=== PATIENT | male | born 1960 | race Caucasian/White ===

== ENCOUNTER → 2024-10-20 | Outpatient (REF) | payer MEDICARE, OTHER ==
[~2024-10-20] MED LIST: CIPR500T39 PO; NITR100C3 PO
[2024-10-20 09:00] LABS: BASO % 0.2 % (0.0-1.0); EOS # 0.1 10^3/uL (0.0-0.5); EOS % 2.1 % (0.0-3.0); HEMATOCRIT 29.6 % (42.0-52.0); HEMOGLOBIN 9.2 g/dl (13.5-17.5); LYMPH # 0.8 10^3/uL (1.5-5.0); MEAN CORPUSCULAR HEMOGLOBIN 28.4 pg (27.0-33.0); MEAN CORPUSCULAR HGB CONC 31.1 g/dl (32.0-36.5); MEAN CORPUSCULAR VOLUME 91.4 fl (80.0-96.0); MONO # 0.6 10^3/uL (0.0-0.8); MONO % 12.1 % (2.0-8.0); NEUTROPHILS # 3.5 10^3/uL (1.5-8.5); NEUTROPHILS % 68.8 % (36.0-66.0); PLATELET COUNT, AUTOMATED 176 10^3/uL (150-450); RED BLOOD COUNT 3.24 10^6/uL (4.30-6.10); WHITE BLOOD COUNT 5.1 10^3/uL (4.0-10.0)
[2024-10-20 09:46] LABS: ALBUMIN 3.2 G/DL (3.2-5.2); BILIRUBIN,TOTAL 0.8 MG/DL (0.3-1.2); CALCIUM LEVEL 8.1 MG/DL (8.3-10.6); CREATININE FOR GFR 1.28 MG/DL (0.70-1.30); GLOMERULAR FILTRATION RATE 63.3 (>49); MAGNESIUM LEVEL 1.4 MG/DL (1.8-2.4); PERCENT SATURATION 11.2 % (19.7-50.0); POTASSIUM SERUM 3.6 MMOL/L (3.5-5.1); TOTAL PROTEIN 6.8 G/DL (5.7-8.2)
[2024-10-20 09:47] LABS: THYROID STIMULATING HORMONE 6.279 uIU/ML (0.55-4.78); THYROXINE (T4) 8.9 UG/DL (4.5-10.9)
== END ==
PROVIDERS: ATTEND Nurse Practitioner Family
DX: D64.9 Anemia, unspecified (principal); I50.42 Chronic combined systolic (congestive) and diastolic (congestive) heart failure; R79.89 Other specified abnormal findings of blood chemistry

== ENCOUNTER → 2024-10-22 | Outpatient (REF) | payer MEDICARE, OTHER ==
[2024-10-22 15:03] LABS: APPEARANCE, URINE CLOUDY (CLEAR); BACTERIA, URINE AUTO 1+ (NEGATIVE); BILIRUBIN, URINE AUTO NEGATIVE (NEGATIVE); BLOOD, URINE BLOOD 3+ (NEGATIVE); COLOR, URINE RED (YELLOW); GLUCOSE, URINE (UA) AUTO 2+ mg/dL (NEGATIVE); KETONE, URINE AUTO NEGATIVE (NEGATIVE); LEUKOCYTE ESTERASE, URINE AUTO 3+ (NEGATIVE); NITRITE, URINE AUTO NEGATIVE (NEGATIVE); PROTEIN, URINE AUTO 2+ mg/dL (NEGATIVE); RBC, URINE AUTO TNTC /HPF (0-3); SPECIFIC GRAVITY URINE AUTO 1.012 (1.002-1.035); SQUAMOUS EPITHELIAL CELL UR AU 1 /HPF (0-6); UROBILINOGEN, URINE AUTO 0.2 mg/dL (0.0-2.0); WBC, URINE AUTO TNTC /HPF (0-3)
== END ==
LOC: EEVIPCON 12:57
PROVIDERS: ATTEND Nurse Practitioner Family
DX: R31.9 Hematuria, unspecified (principal)

== ENCOUNTER → 2024-12-01 | Outpatient (REF) | payer MEDICARE, MEDICAID ==
[~2024-12-01] MED LIST changes: +AMLO1TAB24 PO; +ATOR40TA75 PO; +BACTDSTA PO; +CLOP75TA2 PO; +DOXY-441 PO; +ELIQ5TAB PO; +ENTR1TAB PO; +FURO40TA2 PO; +LEXA1TAB PO; +METF-838 PO; +ONDA-83 PO; +PANT20TA6 PO; +TORS20TA2 PO
[2024-12-01 09:22] LABS: PLATELET COUNT, AUTOMATED 107 10^3/uL (150-450)
[2024-12-01 09:50] LABS: ALT/SGPT 13.0 U/L (7.0-40); AST/SGOT 17.0 U/L (<34); CALCIUM LEVEL 7.8 MG/DL (8.3-10.6); CARBON DIOXIDE LEVEL 21.0 MMOL/L (20-31); CHLORIDE LEVEL 104.0 MMOL/L (98-107); CHOLESTEROL LEVEL 77.0 MG/DL (<200); CHOLESTEROL RISK RATIO 3.31 (<5); CREATININE FOR GFR 1.41 MG/DL (0.70-1.30); GLOMERULAR FILTRATION RATE 56.3 (>49); LDL CHOLESTEROL 36.6 MG/DL (<100); NON-HDL-C 53.8 MG/DL; POTASSIUM SERUM 3.3 MMOL/L (3.5-5.1); SODIUM LEVEL 138.0 MMOL/L (136-145); TRIGLYCERIDES LEVEL 86.0 MG/DL (<150)
[2024-12-01 09:53] LABS: FREE T4 1.25 NG/DL (0.89-1.76)
[2024-12-01 10:01] LABS: ESTIMATED AVERAGE GLUCOSE 189.0 MG/DL (60-110)
[2024-12-01 10:10] LABS: EOSINOPHILS 3 % (0-3); LYMPHOCYTES 7 % (16-44); MONOCYTES 8 % (0-5); NEUTROPHILS 82 % (28-66)
[2024-12-01 10:15] LABS: PLATELET ESTIMATE NORMAL (NORMAL)
[2024-12-03 10:56] LABS: PSA % FREE 11.0 % (calc) (>25); PSA FREE 0.1 ng/mL; PSA TOTAL 0.9 ng/mL (< OR = 4.0)
== END ==
DX: Z00.8 Encounter for other general examination (principal); I10 Essential (primary) hypertension; E78.5 Hyperlipidemia, unspecified; E11.9 Type 2 diabetes mellitus without complications; Z12.5 Encounter for screening for malignant neoplasm of prostate

== ENCOUNTER → 2024-12-13 | Outpatient (REF) | payer MEDICARE, MEDICAID ==
[~2024-12-13] MED LIST changes: +ACET-907 PO; +ALDA25TA2 PO; +AZIT-12 PO; +CLAR10CA3 PO; +ECOT81TA5 PO; +ENTR1TAB7 PO; +FARX1TAB3 PO; +FERR325T3 PO; +HYDR25TA88 PO; +MED REC COMMENT; +METF500T13 PO; +NICO-260 MT; +PANT40TA29 PO; +TORS10TA3 PO; +TORS5TAB2 PO
[2024-12-13 11:08] LABS: BASO # 0.0 10^3/uL (0.0-0.2); BASO % 0.4 % (0.0-1.0); EOS # 0.1 10^3/uL (0.0-0.5); EOS % 1.6 % (0.0-3.0); LYMPH # 0.7 10^3/uL (1.5-5.0); LYMPH % 13.5 % (24.0-44.0); MONO # 0.4 10^3/uL (0.0-0.8); MONO % 8.6 % (2.0-8.0); NEUTROPHILS # 3.7 10^3/uL (1.5-8.5); NEUTROPHILS % 74.7 % (36.0-66.0); PLATELET COUNT, AUTOMATED 173 10^3/uL (150-450)
[2024-12-13 11:21] LABS: ESTIMATED AVERAGE GLUCOSE 200.0 MG/DL (60-110)
[2024-12-13 11:36] LABS: ALT/SGPT 10.0 U/L (7.0-40); AST/SGOT 18.0 U/L (<34); CALCIUM LEVEL 8.8 MG/DL (8.3-10.6); CARBON DIOXIDE LEVEL 20.0 MMOL/L (20-31); CHLORIDE LEVEL 110.0 MMOL/L (98-107); CHOLESTEROL LEVEL 84.0 MG/DL (<200); CHOLESTEROL RISK RATIO 2.57 (<5); CREATININE FOR GFR 1.14 MG/DL (0.70-1.30); GLOMERULAR FILTRATION RATE 72.7 (>49); LDL CHOLESTEROL 39.4 MG/DL (<100); NON-HDL-C 51.4 MG/DL; POTASSIUM SERUM 4.5 MMOL/L (3.5-5.1); SODIUM LEVEL 143.0 MMOL/L (136-145); TRIGLYCERIDES LEVEL 60.0 MG/DL (<150)
[2024-12-13 11:40] LABS: FREE T4 1.31 NG/DL (0.89-1.76)
[2024-12-15 13:05] LABS: PSA % FREE 14.0 % (calc) (>25); PSA FREE 0.2 ng/mL; PSA TOTAL 1.4 ng/mL (< OR = 4.0)
== END ==
DX: Z00.8 Encounter for other general examination (principal); I10 Essential (primary) hypertension; E78.5 Hyperlipidemia, unspecified; E11.9 Type 2 diabetes mellitus without complications; Z12.5 Encounter for screening for malignant neoplasm of prostate

== ENCOUNTER 2024-12-14 07:34 | Inpatient (IN) | payer MEDICARE, MEDICAID ==
[~2024-12-14] VITALS: Ht 177.8 cm; Wt 115.7 kg
[~2024-12-14 07:34] MED LIST changes: -ACET-907 PO; -ALDA25TA2 PO; -AMLO1TAB24 PO; -ATOR40TA75 PO; -AZIT-12 PO; -BACTDSTA PO; -CLAR10CA3 PO; -CLOP75TA2 PO; -DOXY-441 PO; -ECOT81TA5 PO; -ELIQ5TAB PO; -ENTR1TAB PO; -ENTR1TAB7 PO; -FARX1TAB3 PO; -FERR325T3 PO; -FURO40TA2 PO; -HYDR25TA88 PO; -LEXA1TAB PO; -MED REC COMMENT; -METF-838 PO; -METF500T13 PO; -NICO-260 MT; -ONDA-83 PO; -PANT20TA6 PO; -PANT40TA29 PO; -TORS10TA3 PO; -TORS20TA2 PO; -TORS5TAB2 PO
[2024-12-14] MEDS: IPRATROPIUM 0.5 MG/ALBUTEROL 2.5 MG INH SOL UD 3 ML NEB PRN (08:08)
[2024-12-14 09:25] LABS: BASO # 0.0 10^3/uL (0.0-0.2); BASO % 0.1 % (0.0-1.0); EOS # 0.0 10^3/uL (0.0-0.5); EOS % 0.4 % (0.0-3.0); LYMPH # 0.7 10^3/uL (1.5-5.0); LYMPH % 6.6 % (24.0-44.0); MONO # 0.7 10^3/uL (0.0-0.8); MONO % 6.7 % (2.0-8.0); NEUTROPHILS # 8.5 10^3/uL (1.5-8.5); NEUTROPHILS % 85.7 % (36.0-66.0); PLATELET COUNT, AUTOMATED 192 10^3/uL (150-450)
[2024-12-14 09:26] LABS: VENOUS BASE EXCESS -1.8 (-2.0-2.0); VENOUS HCO3 23.2 MMOL/L (23.0-27.0); VENOUS O2 SATURATION 79.5 % (60.0-80.0); VENOUS PARTIAL PRESSURE CO2 40.5 mmHg (38.0-50.0); VENOUS PARTIAL PRESSURE O2 48.0 mmHg (30.0-50.0); VENOUS PH 7.376 UNITS (7.330-7.430); VENOUS STANDARD HCO3 22.6 MMOL/L; VENOUS TOTAL CO2 24.4 MMOL/L (24.0-28.0)
[2024-12-14 09:57] LABS: ALT/SGPT 10.0 U/L (7.0-40); AST/SGOT 15.0 U/L (<34); CALCIUM LEVEL 8.9 MG/DL (8.3-10.6); CARBON DIOXIDE LEVEL 24.0 MMOL/L (20-31); CHLORIDE LEVEL 106.0 MMOL/L (98-107); CREATININE FOR GFR 1.22 MG/DL (0.70-1.30); GLOMERULAR FILTRATION RATE 67.0 (>49); POTASSIUM SERUM 3.9 MMOL/L (3.5-5.1); SODIUM LEVEL 143.0 MMOL/L (136-145)
[2024-12-14] MEDS ORDERED: ISOVUE-370 76% 100 ML VIAL As Ordered ONE (10:16)
[2024-12-14] MEDS ORDERED: FURO40TA2 PO (11:19)
[2024-12-14] MEDS ORDERED: BACTDSTA PO (11:19)
[2024-12-14] MEDS ORDERED: ATOR40TA75 PO (11:19)
[2024-12-14] MEDS ORDERED: CLOP75TA2 PO (11:19)
[2024-12-14] MEDS ORDERED: ENTR1TAB PO (11:20)
[2024-12-14] MEDS ORDERED: PANT20TA6 PO (11:20)
[2024-12-14] MEDS ORDERED: ELIQ5TAB PO (11:20)
[2024-12-14] MEDS ORDERED: METF-838 PO (11:22)
[2024-12-14] MEDS ORDERED: LEXA1TAB PO (11:22)
[2024-12-14] MEDS ORDERED: AMLO1TAB24 PO (11:24)
[2024-12-14] MEDS ORDERED: ONDA-83 PO (11:24)
[2024-12-14] MEDS ORDERED: DOXY-441 PO (11:24)
[2024-12-14] MEDS ORDERED: HOME MED LIST COMPLETE! XX SCH (11:25)
[2024-12-14] MEDS: LevoFLOXacin IV 750 MG in IV 1 EA IV ONE (11:27)
[2024-12-14] MEDS ORDERED: IPRATROPIUM 0.5 MG/ALBUTEROL 2.5 MG INH SOL UD 3 ML NEB PRN (15:05)
[2024-12-14 16:16] VITALS: BP 152/68; TEMP 98.5; O2SAT 95
[2024-12-14] MEDS ORDERED: GLUCOSE 4 GM CHEW PO PRN (17:30)
[2024-12-14] MEDS ORDERED: DEXTROSE 50% 50 ML SYRINGE IV PRN (17:30)
[2024-12-14] MEDS ORDERED: GLUCAGON INJ 1 MG VIAL SC PRN (17:30)
[2024-12-14] MEDS: HumuLIN R (REGULAR) INSULIN (NovoLIN R) **100 U/ML** PER UNIT IV STA ×2 (17:45→19:25)
[2024-12-14] MEDS ORDERED: PILL CUTTER 1 EACH XX PRN (17:45)
[2024-12-14] MEDS: FUROSEMIDE 20 MG/2 ML VIAL IV ONE (19:25)
[2024-12-14] MEDS: INSULIN LISPRO (NovoLOG) PER UNIT SC SCH ×2 (19:27→21:05)
[2024-12-14 19:46] VITALS: BP 131/61; TEMP 98.1; O2SAT 93
[2024-12-14] MEDS: NICOTINE 21 MG/24 HR 1 EA TRANSDERMAL TD ONE (21:05)
[2024-12-14] MEDS: ENOXAPARIN 100 MG/1 ML SYRINGE (J1650 PER 10MG) SC SCH (21:05)
[2024-12-14] MEDS: ENTRESTO 24-26 MG TABLET (SACUBITRIL/VALSARTAN) PO SCH (21:05)
[2024-12-15] VITALS (20 sets, daily range): BP systolic 128–152; BP diastolic 60–70; TEMP 97.1–98.4; O2SAT 92–96
[2024-12-15] MEDS ORDERED: INSULIN LISPRO (NovoLOG) PER UNIT SC SCH (07:30)
[2024-12-15] MEDS: ATORVASTATIN 20 MG TAB PO SCH (08:27)
[2024-12-15] MEDS: ESCITALOPRAM OXALATE 10 MG TABLET PO SCH (08:27)
[2024-12-15] MEDS: PANTOPRAZOLE 20 MG TAB PO SCH (08:28)
[2024-12-15] MEDS: FUROSEMIDE 40 MG/4 ML VIAL IV SCH (09:00)
[2024-12-15] MEDS ORDERED: FUROSEMIDE 40 MG TAB PO SCH (09:00)
[2024-12-15 09:18] LABS: CALCIUM LEVEL 8.7 MG/DL (8.3-10.6); CARBON DIOXIDE LEVEL 21.0 MMOL/L (20-31); CHLORIDE LEVEL 104.0 MMOL/L (98-107); CREATININE FOR GFR 1.48 MG/DL (0.70-1.30); GLOMERULAR FILTRATION RATE 53.2 (>49); MAGNESIUM LEVEL 1.5 MG/DL (1.8-2.4); POTASSIUM SERUM 4.3 MMOL/L (3.5-5.1); SODIUM LEVEL 138.0 MMOL/L (136-145)
[2024-12-15] MEDS: MAG SULF 1GM/100ML (MAG RUN) 1 GM in IV 1 EA IV SCH (14:49)
[2024-12-15] MEDS: ACETAMINOPHEN 325 MG TAB PO PRN (20:07)
[2024-12-16] VITALS (24 sets, daily range): BP systolic 131–176; BP diastolic 62–76; TEMP 96.8–97.5; O2SAT 86–99
[2024-12-16 05:36] LABS: CALCIUM LEVEL 8.8 MG/DL (8.3-10.6); CARBON DIOXIDE LEVEL 23.0 MMOL/L (20-31); CHLORIDE LEVEL 107.0 MMOL/L (98-107); CREATININE FOR GFR 1.6 MG/DL (0.70-1.30); GLOMERULAR FILTRATION RATE 48.4 (>49); MAGNESIUM LEVEL 2.2 MG/DL (1.8-2.4); POTASSIUM SERUM 4.2 MMOL/L (3.5-5.1); SODIUM LEVEL 142.0 MMOL/L (136-145)
[2024-12-16] MEDS: NICOTINE POLACRILEX 2 MG GUM PO PRN (15:01)
[2024-12-17] VITALS (16 sets, daily range): BP systolic 131–178; BP diastolic 58–80; TEMP 96.6–97.2; O2SAT 96–99
[2024-12-17 05:27] LABS: CALCIUM LEVEL 8.3 MG/DL (8.3-10.6); CARBON DIOXIDE LEVEL 24.0 MMOL/L (20-31); CHLORIDE LEVEL 107.0 MMOL/L (98-107); CREATININE FOR GFR 1.32 MG/DL (0.70-1.30); GLOMERULAR FILTRATION RATE 61.0 (>49); MAGNESIUM LEVEL 2.2 MG/DL (1.8-2.4); POTASSIUM SERUM 4.2 MMOL/L (3.5-5.1); SODIUM LEVEL 140.0 MMOL/L (136-145)
[2024-12-17 05:28] LABS: BASO # 0.0 10^3/uL (0.0-0.2); BASO % 0.4 % (0.0-1.0); EOS # 0.1 10^3/uL (0.0-0.5); EOS % 3.0 % (0.0-3.0); LYMPH # 0.7 10^3/uL (1.5-5.0); LYMPH % 14.9 % (24.0-44.0); MONO # 0.4 10^3/uL (0.0-0.8); MONO % 9.1 % (2.0-8.0); NEUTROPHILS # 3.3 10^3/uL (1.5-8.5); NEUTROPHILS % 72.2 % (36.0-66.0); PLATELET COUNT, AUTOMATED 179 10^3/uL (150-450)
[2024-12-17] MEDS: AZITHROMYCIN 250 MG TABLET PO SCH (08:15)
[2024-12-17] MEDS: APIXABAN 5 MG TAB PO SCH (20:09)
[2024-12-18 03:50] VITALS: BP 189/83; TEMP 97; O2SAT 97
[2024-12-18 05:42] LABS: BASO # 0.0 10^3/uL (0.0-0.2); BASO % 0.5 % (0.0-1.0); EOS # 0.1 10^3/uL (0.0-0.5); EOS % 2.5 % (0.0-3.0); LYMPH # 0.7 10^3/uL (1.5-5.0); LYMPH % 15.3 % (24.0-44.0); MONO # 0.4 10^3/uL (0.0-0.8); MONO % 9.9 % (2.0-8.0); NEUTROPHILS # 3.2 10^3/uL (1.5-8.5); NEUTROPHILS % 71.1 % (36.0-66.0); PLATELET COUNT, AUTOMATED 189 10^3/uL (150-450)
[2024-12-18 06:12] LABS: CALCIUM LEVEL 8.8 MG/DL (8.3-10.6); CARBON DIOXIDE LEVEL 22.0 MMOL/L (20-31); CHLORIDE LEVEL 109.0 MMOL/L (98-107); CREATININE FOR GFR 1.01 MG/DL (0.70-1.30); GLOMERULAR FILTRATION RATE 84.1 (>49); MAGNESIUM LEVEL 2.0 MG/DL (1.8-2.4); POTASSIUM SERUM 4.7 MMOL/L (3.5-5.1); SODIUM LEVEL 142.0 MMOL/L (136-145)
[2024-12-18 07:35] VITALS: BP 172/82; TEMP 97.1; O2SAT 95
[2024-12-18] MEDS: TORSEMIDE 20 MG TAB PO SCH (08:12)
[2024-12-18 11:48] VITALS: BP 149/69; TEMP 98; O2SAT 95
[2024-12-18 15:39] VITALS: BP 180/90; TEMP 97.2; O2SAT 96
[2024-12-18] MEDS: amLODIPine 5 MG TAB PO SCH (16:23)
[2024-12-18 19:37] VITALS: BP 180/78; TEMP 97.6; O2SAT 96
[2024-12-18 23:56] VITALS: BP 157/67; TEMP 98.1; O2SAT 96
[2024-12-19 03:54] VITALS: BP 163/70; TEMP 97.9; O2SAT 97
[2024-12-19 05:30] LABS: CALCIUM LEVEL 8.5 MG/DL (8.3-10.6); CARBON DIOXIDE LEVEL 22.0 MMOL/L (20-31); CHLORIDE LEVEL 106.0 MMOL/L (98-107); CREATININE FOR GFR 1.17 MG/DL (0.70-1.30); GLOMERULAR FILTRATION RATE 70.5 (>49); MAGNESIUM LEVEL 1.9 MG/DL (1.8-2.4); POTASSIUM SERUM 4.4 MMOL/L (3.5-5.1); SODIUM LEVEL 140.0 MMOL/L (136-145)
[2024-12-19 07:23] VITALS: BP 180/78; TEMP 97.5; O2SAT 96
[2024-12-19 11:23] VITALS: BP 150/84; TEMP 97.2; O2SAT 97
[2024-12-19 16:09] VITALS: BP 148/86; TEMP 97.5; O2SAT 96
[2024-12-19 20:40] VITALS: BP 145/65; TEMP 97.1; O2SAT 93
[2024-12-19 23:43] VITALS: BP 148/67; TEMP 97.3; O2SAT 98
[2024-12-20 03:26] VITALS: BP 153/70; TEMP 97.1; O2SAT 97
[2024-12-20 06:26] LABS: CALCIUM LEVEL 8.1 MG/DL (8.3-10.6); CARBON DIOXIDE LEVEL 24.0 MMOL/L (20-31); CHLORIDE LEVEL 106.0 MMOL/L (98-107); CREATININE FOR GFR 1.13 MG/DL (0.70-1.30); GLOMERULAR FILTRATION RATE 73.5 (>49); MAGNESIUM LEVEL 1.8 MG/DL (1.8-2.4); POTASSIUM SERUM 4.4 MMOL/L (3.5-5.1); SODIUM LEVEL 141.0 MMOL/L (136-145)
[2024-12-20 07:49] VITALS: BP 140/68; TEMP 97.2; O2SAT 97
[2024-12-20 08:06] VITALS: BP 140/68
[2024-12-20] MEDS ORDERED: TORS20TA2 PO (11:31)
[2025-12-14] MEDS ORDERED: INSULIN LISPRO (NovoLOG) PER UNIT SC SCH (17:30)
== END 2024-12-20 13:33 | DRG 177 ==
LOC: M ED 07:34 → M ED INP 12:55 → M PCU 16:08
PROVIDERS: ADMIT Student in an Organized Health Care Education/Training Program; ATTEND Family Medicine
DX: J98.59 Other diseases of mediastinum, not elsewhere classified (principal); I50.23 Acute on chronic systolic (congestive) heart failure; J98.11 Atelectasis; N17.9 Acute kidney failure, unspecified; R59.0 Localized enlarged lymph nodes; I48.91 Unspecified atrial fibrillation; Z79.01 Long term (current) use of anticoagulants; E11.65 Type 2 diabetes mellitus with hyperglycemia; I25.10 Atherosclerotic heart disease of native coronary artery without angina pectoris; R06.89 Other abnormalities of breathing; Z79.02 Long term (current) use of antithrombotics/antiplatelets; I11.0 Hypertensive heart disease with heart failure; E83.42 Hypomagnesemia; R00.1 Bradycardia, unspecified; I44.0 Atrioventricular block, first degree; I34.0 Nonrheumatic mitral (valve) insufficiency; E11.22 Type 2 diabetes mellitus with diabetic chronic kidney disease; I25.2 Old myocardial infarction; D64.9 Anemia, unspecified; Z95.2 Presence of prosthetic heart valve; Z87.891 Personal history of nicotine dependence; R91.8 Other nonspecific abnormal finding of lung field; Z79.899 Other long term (current) drug therapy; Z88.8 Allergy status to other drugs, medicaments and biological substances; Z86.73 Personal history of transient ischemic attack (TIA), and cerebral infarction without residual deficits

== ENCOUNTER → 2024-12-21 | Outpatient (REF) | payer MEDICARE, MEDICAID ==
[~2024-12-21] MED LIST changes: +AMLO1TAB24 PO; +ATOR40TA75 PO; +BACTDSTA PO; +CLOP75TA2 PO; +DOXY-441 PO; +ELIQ5TAB PO; +ENTR1TAB PO; +FURO40TA2 PO; +LEXA1TAB PO; +METF-838 PO; +ONDA-83 PO; +PANT20TA6 PO; +TORS20TA2 PO
[2024-12-22 14:16] LABS: APPEARANCE, URINE CLOUDY (CLEAR); BACTERIA, URINE AUTO 3+ (NEGATIVE); BILIRUBIN, URINE AUTO NEGATIVE (NEGATIVE); BLOOD, URINE BLOOD 3+ (NEGATIVE); GLUCOSE, URINE (UA) AUTO 3+ mg/dL (NEGATIVE); KETONE, URINE AUTO NEGATIVE (NEGATIVE); LEUKOCYTE ESTERASE, URINE AUTO 3+ (NEGATIVE); NITRITE, URINE AUTO NEGATIVE (NEGATIVE); PROTEIN, URINE AUTO 1+ mg/dL (NEGATIVE); RBC, URINE AUTO TNTC /HPF (0-3); SPECIFIC GRAVITY URINE AUTO 1.009 (1.002-1.035); SQUAMOUS EPITHELIAL CELL UR AU 0 /HPF (0-6); UROBILINOGEN, URINE AUTO 0.2 mg/dL (0.0-2.0); WBC, URINE AUTO TNTC /HPF (0-3)
== END ==
LOC: M SMT 13:07
PROVIDERS: ATTEND Nurse Practitioner Family
DX: Z01.818 Encounter for other preprocedural examination (principal)

== ENCOUNTER → 2025-01-06 | Outpatient (REF) | payer MEDICARE, MEDICAID | LOC: M LAB REF 12:57 | PROVIDERS: ATTEND Physician Assistant | DX: R00.1 Bradycardia, unspecified (principal) ==

== ENCOUNTER → 2025-01-07 | Outpatient (REF) | payer MEDICARE, MEDICAID ==
[2025-01-07 12:10] LABS: PLATELET COUNT, AUTOMATED 148 10^3/uL (150-450)
[2025-01-07 12:32] LABS: CALCIUM LEVEL 8.8 MG/DL (8.3-10.6); CARBON DIOXIDE LEVEL 23.0 MMOL/L (20-31); CHLORIDE LEVEL 106.0 MMOL/L (98-107); CREATININE FOR GFR 1.0 MG/DL (0.70-1.30); GLOMERULAR FILTRATION RATE 85.1 (>49); POTASSIUM SERUM 4.4 MMOL/L (3.5-5.1); SODIUM LEVEL 141.0 MMOL/L (136-145)
[2025-01-07 14:06] LABS: APPEARANCE, URINE HAZY (CLEAR); BACTERIA, URINE AUTO NEGATIVE (NEGATIVE); BILIRUBIN, URINE AUTO NEGATIVE (NEGATIVE); BLOOD, URINE BLOOD 3+ (NEGATIVE); GLUCOSE, URINE (UA) AUTO 3+ mg/dL (NEGATIVE); KETONE, URINE AUTO NEGATIVE (NEGATIVE); LEUKOCYTE ESTERASE, URINE AUTO 3+ (NEGATIVE); NITRITE, URINE AUTO NEGATIVE (NEGATIVE); PROTEIN, URINE AUTO 2+ mg/dL (NEGATIVE); RBC, URINE AUTO TNTC /HPF (0-3); SPECIFIC GRAVITY URINE AUTO 1.017 (1.002-1.035); SQUAMOUS EPITHELIAL CELL UR AU 0 /HPF (0-6); UROBILINOGEN, URINE AUTO 0.2 mg/dL (0.0-2.0); WBC, URINE AUTO 146 /HPF (0-3)
== END ==
PROVIDERS: ATTEND Nurse Practitioner Family
DX: Z01.818 Encounter for other preprocedural examination (principal); Z79.899 Other long term (current) drug therapy

== ENCOUNTER 2025-01-17 14:53 | Inpatient (IN) | payer MEDICARE, MEDICAID ==
[~2025-01-17] VITALS: Ht 177.8 cm; Wt 121.4 kg
[~2025-01-17 14:53] MED LIST changes: +ACET-907 PO; +AZIT-12 PO; +CLAR10CA3 PO; +ECOT81TA5 PO; +FERR325T3 PO; +HYDR25TA88 PO; +NICO-260 MT; +PANT40TA29 PO
[2025-01-17] MEDS ORDERED: LIDOCAINE 2% 100 MG/5 ML SDV (FOR ANES.) As Ordered ONE (15:14)
[2025-01-17] MEDS ORDERED: MIDAZOLAM INJ 2 MG/2 ML VIAL As Ordered ONE (15:15)
[2025-01-17] MEDS ORDERED: LIDOCAINE 1% SDV 30 ML VIAL As Ordered ONE (15:48)
[2025-01-17] MEDS: LR 1,000 ML IV SCH ×2 (15:50→18:35)
[2025-01-17] MEDS ORDERED: GLUCAGON INJ 1 MG VIAL SC PRN ×3 (16:05→19:20)
[2025-01-17] MEDS ORDERED: DEXTROSE 50% 50 ML SYRINGE IV PRN ×3 (16:05→19:20)
[2025-01-17] MEDS ORDERED: GLUCOSE 4 GM CHEW PO PRN ×3 (16:05→19:20)
[2025-01-17] MEDS ORDERED: INSULIN LISPRO (NovoLOG) PER UNIT As Ordered ONE (16:08)
[2025-01-17] MEDS: INSULIN LISPRO (NovoLOG) PER UNIT SC PRN ×2 (16:12→19:20)
[2025-01-17] MEDS ORDERED: ALBUTEROL SULFATE 2.5 MG/0.5 ML INH CONCENTRATE NEB SOLN As Ordered ONE (16:16)
[2025-01-17] MEDS: ALBUTEROL SULFATE 2.5 MG/0.5 ML INH CONCENTRATE NEB SOLN NEB ONE (16:21)
[2025-01-17] MEDS: VANCOMYCIN HCL 1,000 MG, VIAL MATE ADAPTER 1 EACH in NS 250 ML IV ONE (16:30)
[2025-01-17] MEDS ORDERED: VANCOMYCIN 1000MG/20ML VIAL As Ordered ONE (16:32)
[2025-01-17] MEDS ORDERED: KETOROLAC 30 MG/ML 1 ML VIAL As Ordered ONE (18:14)
[2025-01-17] MEDS: FUROSEMIDE 40 MG/4 ML VIAL IV ONE (19:10)
[2025-01-17] MEDS: ALBUTEROL SULFATE 2.5 MG/0.5 ML INH CONCENTRATE NEB SOLN INH SCH (20:00)
[2025-01-17 20:15] VITALS: BP 144/76; TEMP 96.7; O2SAT 95
[2025-01-17 21:00] VITALS: BP 157/77; TEMP 96.8; O2SAT 96
[2025-01-17] MEDS: INSULIN LISPRO (NovoLOG) PER UNIT SC SCH (21:00)
[2025-01-17 21:35] VITALS: BP 142/68; O2SAT 65; O2SAT 95
[2025-01-17] MEDS: PANTOPRAZOLE 40MG TAB PO SCH (21:45)
[2025-01-17] MEDS: ENTRESTO 24-26 MG TABLET (SACUBITRIL/VALSARTAN) PO SCH (21:45)
[2025-01-17 21:50] VITALS: TEMP 96.1
[2025-01-17 22:35] VITALS: BP 155/74; TEMP 95.7; O2SAT 97
[2025-01-17] MEDS ORDERED: METF500T13 PO (23:26)
[2025-01-17] MEDS ORDERED: MED REC COMMENT (23:32)
[2025-01-17] MEDS ORDERED: HOME MED LIST COMPLETE! XX SCH (23:35)
[2025-01-17 23:40] VITALS: BP 153/74; TEMP 96; O2SAT 98
[2025-01-18] VITALS (14 sets, daily range): BP systolic 110–162; BP diastolic 60–76; TEMP 96.3–100.4; O2SAT 88–100
[2025-01-18 06:41] LABS: PLATELET COUNT, AUTOMATED 116 10^3/uL (150-450)
[2025-01-18] MEDS: FUROSEMIDE 40 MG/4 ML VIAL IV ONE ×2 (06:51→12:49)
[2025-01-18 07:05] LABS: CALCIUM LEVEL 8.3 MG/DL (8.3-10.6); CARBON DIOXIDE LEVEL 24.0 MMOL/L (20-31); CHLORIDE LEVEL 110.0 MMOL/L (98-107); CREATININE FOR GFR 1.06 MG/DL (0.70-1.30); GLOMERULAR FILTRATION RATE 79.4 (>49); MAGNESIUM LEVEL 1.8 MG/DL (1.8-2.4); PHOSPHORUS LEVEL 4.1 MG/DL (2.4-5.1); POTASSIUM SERUM 4.2 MMOL/L (3.5-5.1); SODIUM LEVEL 142.0 MMOL/L (136-145)
[2025-01-18] MEDS: INSULIN LISPRO (NovoLOG) PER UNIT SC SCH (08:41)
[2025-01-18] MEDS: ESCITALOPRAM OXALATE 10 MG TABLET PO SCH (08:41)
[2025-01-18] MEDS: metFORMIN 500 MG TAB PO SCH (08:42)
[2025-01-18] MEDS: DAPAGLIFLOZIN PROPANEDIOL 10 MG TABLET PO SCH (12:49)
[2025-01-18] MEDS: ATORVASTATIN 10 MG TAB PO SCH (20:45)
[2025-01-18] MEDS: IRON SUCROSE 500 MG in NS 250 ML OVER 4 HRS IV ONE (21:10)
[2025-01-18] MEDS: ACETAMINOPHEN 325 MG TAB PO PRN (22:04)
[2025-01-19 00:05] VITALS: BP 142/62; TEMP 100.3; O2SAT 94
[2025-01-19] MEDS: FUROSEMIDE 40 MG/4 ML VIAL IV ONE ×2 (00:47→08:52)
[2025-01-19 04:22] VITALS: BP 138/68; TEMP 98.3; O2SAT 93
[2025-01-19 06:35] LABS: PLATELET COUNT, AUTOMATED 124 10^3/uL (150-450)
[2025-01-19 07:14] LABS: CALCIUM LEVEL 8.5 MG/DL (8.3-10.6); CARBON DIOXIDE LEVEL 26.0 MMOL/L (20-31); CHLORIDE LEVEL 106.0 MMOL/L (98-107); CREATININE FOR GFR 1.31 MG/DL (0.70-1.30); GLOMERULAR FILTRATION RATE 61.5 (>49); PHOSPHORUS LEVEL 4.5 MG/DL (2.4-5.1); POTASSIUM SERUM 3.6 MMOL/L (3.5-5.1); SODIUM LEVEL 143.0 MMOL/L (136-145)
[2025-01-19] MEDS: TORSEMIDE 10 MG TABLET PO SCH (08:57)
[2025-01-19] MEDS: ENTRESTO 49-51 MG TABLET (SACUBITRIL/VALSARTAN) PO SCH (08:57)
[2025-01-19] MEDS: traMADol 50 MG TAB PO PRN (09:21)
[2025-01-19 10:57] VITALS: BP 121/56; TEMP 97.2; O2SAT 94
[2025-01-19 19:54] VITALS: BP 144/65; TEMP 97.4; O2SAT 100
[2025-01-19 20:08] VITALS: BP 131/60; TEMP 97.4; O2SAT 96
[2025-01-20 04:17] VITALS: BP 130/65; TEMP 97.6; O2SAT 93
[2025-01-20 12:00] VITALS: BP 127/61; TEMP 98.4; O2SAT 93
[2025-01-20 14:57] LABS: CALCIUM LEVEL 8.4 MG/DL (8.3-10.6); CARBON DIOXIDE LEVEL 28.0 MMOL/L (20-31); CHLORIDE LEVEL 105.0 MMOL/L (98-107); CREATININE FOR GFR 1.34 MG/DL (0.70-1.30); GLOMERULAR FILTRATION RATE 59.9 (>49); PHOSPHORUS LEVEL 4.0 MG/DL (2.4-5.1); POTASSIUM SERUM 3.5 MMOL/L (3.5-5.1); SODIUM LEVEL 143.0 MMOL/L (136-145)
[2025-01-20 20:00] VITALS: BP 135/60; TEMP 97.8; O2SAT 97
[2025-01-20] MEDS: APIXABAN 5 MG TAB PO SCH (20:30)
[2025-01-21] MEDS: RAMELTEON 8 MG TAB PO PRN (01:04)
[2025-01-21 04:00] VITALS: BP 143/64; TEMP 98.1; O2SAT 97
[2025-01-21 10:00] VITALS: BP 110/56; TEMP 97.8; O2SAT 93
[2025-01-21 11:33] LABS: CALCIUM LEVEL 8.4 MG/DL (8.3-10.6); CARBON DIOXIDE LEVEL 26.0 MMOL/L (20-31); CHLORIDE LEVEL 101.0 MMOL/L (98-107); CREATININE FOR GFR 1.4 MG/DL (0.70-1.30); GLOMERULAR FILTRATION RATE 56.8 (>49); PHOSPHORUS LEVEL 3.3 MG/DL (2.4-5.1); POTASSIUM SERUM 3.5 MMOL/L (3.5-5.1); SODIUM LEVEL 137.0 MMOL/L (136-145)
[2025-01-21] MEDS ORDERED: TORS5TAB2 PO (16:39)
[2025-01-21] MEDS ORDERED: FARX1TAB3 PO (16:39)
[2025-01-21] MEDS ORDERED: ENTR1TAB7 PO (16:39)
[2025-01-22 04:00] VITALS: BP 131/61; TEMP 98.2; O2SAT 98
[2025-01-22] MEDS ORDERED: PILL CUTTER 1 EACH XX PRN (10:00)
[2025-01-22] MEDS: TORSEMIDE 10 MG TABLET PO SCH (10:41)
[2025-01-22 18:03] VITALS: BP 150/61; TEMP 97.9; O2SAT 97
[2025-01-23 06:34] VITALS: BP 142/57; TEMP 97.7; O2SAT 93
[2025-01-23] MEDS: metFORMIN 500 MG TAB PO SCH (18:00)
[2025-01-23 22:39] VITALS: BP 150/76; TEMP 97.5; O2SAT 92
[2025-01-24 05:27] VITALS: BP 151/76; TEMP 97.5; O2SAT 97
[2025-01-24 07:02] LABS: CALCIUM LEVEL 8.4 MG/DL (8.3-10.6); CARBON DIOXIDE LEVEL 28.0 MMOL/L (20-31); CHLORIDE LEVEL 105.0 MMOL/L (98-107); CREATININE FOR GFR 1.26 MG/DL (0.70-1.30); GLOMERULAR FILTRATION RATE 64.5 (>49); PHOSPHORUS LEVEL 3.7 MG/DL (2.4-5.1); POTASSIUM SERUM 3.7 MMOL/L (3.5-5.1); SODIUM LEVEL 143.0 MMOL/L (136-145)
[2025-01-24] MEDS: TORSEMIDE 10 MG TABLET PO SCH (08:54)
[2025-01-24] MEDS: SPIRONOLACTONE 12.5MG PER 1/2 TABLET PO SCH (08:56)
[2025-01-24] MEDS ORDERED: METF500T13 PO (11:23)
[2025-01-24] MEDS ORDERED: ALDA25TA2 PO (11:23)
[2025-01-24] MEDS ORDERED: TORS10TA3 PO (11:23)
[2025-01-24 12:45] VITALS: BP 150/73; TEMP 97.3; O2SAT 96
[2025-01-24 13:51] VITALS: BP 150/73; TEMP 97.3; O2SAT 96
[2025-01-25 06:14] VITALS: BP 132/55; TEMP 97.5; O2SAT 93
[2025-01-25 09:42] VITALS: BP 131/61
== END 2025-01-25 10:48 | disposition home or self-care (01) | DRG 242 ==
LOC: M SDC 14:53 → M RR INP 19:08 → M MS4PR 20:49 → M SDC 01-19 07:44 → M MS4PR 01-19 07:45 → M PM&R 01-19 13:08 → M MS4PR 01-19 13:12 → M MSPAV 01-22 18:00
PROVIDERS: ADMIT Internal Medicine Cardiovascular Disease; ATTEND Internal Medicine Cardiovascular Disease
PROC: 02H63JZ Insertion of Pacemaker Lead into Right Atrium, Percutaneous Approach (ICD-10-PCS; 2025-01-17)
PROC: 02HK3JZ Insertion of Pacemaker Lead into Right Ventricle, Percutaneous Approach (ICD-10-PCS; 2025-01-17)
PROC: 0JH606Z Insertion of Pacemaker, Dual Chamber into Chest Subcutaneous Tissue and Fascia, Open Approach (ICD-10-PCS; principal; 2025-01-17 16:30)
DX: I49.5 Sick sinus syndrome (principal); I50.23 Acute on chronic systolic (congestive) heart failure; R00.1 Bradycardia, unspecified; E11.40 Type 2 diabetes mellitus with diabetic neuropathy, unspecified; D50.9 Iron deficiency anemia, unspecified; E78.5 Hyperlipidemia, unspecified; I48.0 Paroxysmal atrial fibrillation; R55 Syncope and collapse; I25.10 Atherosclerotic heart disease of native coronary artery without angina pectoris; I11.0 Hypertensive heart disease with heart failure

== ENCOUNTER → 2025-01-29 | Outpatient (REF) | payer MEDICARE, MEDICAID ==
[~2025-01-29] MED LIST changes: +ALDA25TA2 PO; +ENTR1TAB7 PO; +FARX1TAB3 PO; +MED REC COMMENT; +METF500T13 PO; +TORS10TA3 PO; +TORS5TAB2 PO
[2025-01-29 14:56] LABS: APPEARANCE, URINE CLOUDY (CLEAR); BACTERIA, URINE AUTO 1+ (NEGATIVE); BILIRUBIN, URINE AUTO NEGATIVE (NEGATIVE); BLOOD, URINE BLOOD 2+ (NEGATIVE); GLUCOSE, URINE (UA) AUTO 3+ mg/dL (NEGATIVE); KETONE, URINE AUTO NEGATIVE (NEGATIVE); LEUKOCYTE ESTERASE, URINE AUTO 3+ (NEGATIVE); NITRITE, URINE AUTO NEGATIVE (NEGATIVE); PROTEIN, URINE AUTO 1+ mg/dL (NEGATIVE); RBC, URINE AUTO 67 /HPF (0-3); SPECIFIC GRAVITY URINE AUTO 1.018 (1.002-1.035); SQUAMOUS EPITHELIAL CELL UR AU 1 /HPF (0-6); UROBILINOGEN, URINE AUTO 0.2 mg/dL (0.0-2.0); WBC, URINE AUTO TNTC /HPF (0-3)
== END ==
LOC: M LAB 11:00
PROVIDERS: ATTEND Nurse Practitioner Family
DX: Z01.818 Encounter for other preprocedural examination (principal)

== ENCOUNTER → 2025-02-16 | Day surgery (SDC) | payer MEDICARE, MEDICAID ==
[~2025-02-16] VITALS: Ht 175.3 cm; Wt 100.2 kg
[~2025-02-16] MED LIST changes: +CIPROFLOXACIN 400 MG in IV 1 EA IV ONE; +DEXTROSE 50% 50 ML SYRINGE IV PRN; +ERTAPENEM SODIUM 1 GM in NS MINI-BAG PLUS 50 ML IV ONE; +GENTAMICIN 80 MG in D5W 100 ML IV ONE; +GLUCAGON INJ 1 MG VIAL SC PRN; +GLUCOSE 4 GM CHEW PO PRN; +LIDOCAINE 2% 100 MG/5 ML SDV (FOR ANES.) As Ordered ONE; +MAGN400T2 PO; +MIDAZOLAM INJ 2 MG/2 ML VIAL As Ordered ONE; +NICO2LOZ MT; +ONDANSETRON 4MG 2ML VIAL As Ordered ONE; +dexAMETHasone 4 MG/ML 1 ML VIAL As Ordered ONE
[2025-02-16 10:55] VITALS: BP 120/58; TEMP 98.1; O2SAT 98
[2025-02-16] MEDS: ISOVUE-300 61% 100 ML VIAL As Ordered ONE (11:15)
[2025-02-16] MEDS: INSULIN LISPRO (NovoLOG) PER UNIT SC PRN (11:20)
== END | disposition home or self-care (01) ==
LOC: M SDC 09:31
PROVIDERS: ATTEND Urology
DX: N20.1 Calculus of ureter (principal); Z53.09 Procedure and treatment not carried out because of other contraindication; Z79.899 Other long term (current) drug therapy

== ENCOUNTER 2025-02-20 00:17 | Inpatient (IN) | payer MEDICARE, MEDICAID ==
[~2025-02-20] VITALS: Ht 175.3 cm; Wt 135.5 kg
[~2025-02-20 00:17] MED LIST changes: -CIPROFLOXACIN 400 MG in IV 1 EA IV ONE; -DEXTROSE 50% 50 ML SYRINGE IV PRN; -ERTAPENEM SODIUM 1 GM in NS MINI-BAG PLUS 50 ML IV ONE; -GENTAMICIN 80 MG in D5W 100 ML IV ONE; -GLUCAGON INJ 1 MG VIAL SC PRN; -GLUCOSE 4 GM CHEW PO PRN; -LIDOCAINE 2% 100 MG/5 ML SDV (FOR ANES.) As Ordered ONE; -MIDAZOLAM INJ 2 MG/2 ML VIAL As Ordered ONE; -NICO2LOZ MT; +NICO2LOZ PO; -ONDANSETRON 4MG 2ML VIAL As Ordered ONE; -dexAMETHasone 4 MG/ML 1 ML VIAL As Ordered ONE
[2025-02-20 01:00] LABS: BASO # 0.0 10^3/uL (0.0-0.2); BASO % 0.2 % (0.0-1.0); EOS # 0.0 10^3/uL (0.0-0.5); EOS % 0.1 % (0.0-3.0); LYMPH # 0.4 10^3/uL (1.5-5.0); LYMPH % 3.4 % (24.0-44.0); MONO # 0.7 10^3/uL (0.0-0.8); MONO % 6.3 % (2.0-8.0); NEUTROPHILS # 9.6 10^3/uL (1.5-8.5); NEUTROPHILS % 89.3 % (36.0-66.0); PLATELET COUNT, AUTOMATED 137 10^3/uL (150-450)
[2025-02-20 01:24] LABS: ALT/SGPT 29.0 U/L (7.0-40); AST/SGOT 62.0 U/L (<34); CALCIUM LEVEL 8.1 MG/DL (8.3-10.6); CARBON DIOXIDE LEVEL 18.0 MMOL/L (20-31); CHLORIDE LEVEL 96.0 MMOL/L (98-107); CK-MB VALUE MASS 1.2 NG/ML (<3.6); CPK CREATINE PHOSPHOKINASE 160.0 U/L (46-171); CREATININE FOR GFR 1.89 MG/DL (0.70-1.30); GLOMERULAR FILTRATION RATE 39.6 (>49); MB/CK RELATIVE INDEX 0.75 (< OR =4); POTASSIUM SERUM 5.8 MMOL/L (3.5-5.1); SODIUM LEVEL 127.0 MMOL/L (136-145)
[2025-02-20] MEDS ORDERED: HumuLIN R (REGULAR) INSULIN (NovoLIN R) **100 U/ML** PER UNIT IV ONE (01:35)
[2025-02-20 01:46] LABS: ACETONE/KETONE 0.14 MMOL/L (0.02-0.27)
[2025-02-20 02:03] LABS: VENOUS BASE EXCESS -4.2 (-2.0-2.0); VENOUS HCO3 19.5 MMOL/L (23.0-27.0); VENOUS O2 SATURATION 97.3 % (60.0-80.0); VENOUS PARTIAL PRESSURE CO2 31.3 mmHg (38.0-50.0); VENOUS PARTIAL PRESSURE O2 91.9 mmHg (30.0-50.0); VENOUS PH 7.412 UNITS (7.330-7.430); VENOUS STANDARD HCO3 21.0 MMOL/L; VENOUS TOTAL CO2 20.4 MMOL/L (24.0-28.0)
[2025-02-20] MEDS: HumuLIN R (REGULAR) INSULIN (NovoLIN R) **100 U/ML** PER UNIT IV ONE ×2 (02:14→04:00)
[2025-02-20] MEDS: NS (Normal Saline) 0.9% 1,000 ML IV ONE ×2 (02:28→12:44)
[2025-02-20] MEDS: LevoFLOXacin IV 750 MG in IV 1 EA IV ONE (05:23)
[2025-02-20] MEDS: NS (Normal Saline) 0.9% 2,000 ML in IV 1 EA IV ONE (05:23)
[2025-02-20] MEDS ORDERED: ACETAMINOPHEN 325 MG TAB PO PRN (07:20)
[2025-02-20] MEDS ORDERED: LevoFLOXacin IV 750 MG in IV 1 EA IV SCH (07:20)
[2025-02-20] MEDS ORDERED: MORPHINE 2 MG/ML 1 ML VIAL IV PRN (07:20)
[2025-02-20] MEDS ORDERED: VANCOMYCIN HCL 1,000 MG, VIAL MATE ADAPTER 1 EACH in NS 250 ML IV SCH (07:20)
[2025-02-20] MEDS: NS (Normal Saline) 0.9% 1,000 ML IV SCH (07:20)
[2025-02-20] MEDS ORDERED: METF500T13 PO (07:31)
[2025-02-20] MEDS ORDERED: ENTR1TAB7 PO (07:31)
[2025-02-20] MEDS ORDERED: FARX1TAB3 PO (07:31)
[2025-02-20] MEDS ORDERED: TORS10TA3 PO (07:31)
[2025-02-20] MEDS ORDERED: CALC500T61 PO (07:31)
[2025-02-20] MEDS ORDERED: MAG-LIQ2 PO (07:31)
[2025-02-20] MEDS ORDERED: GUAIDM5UD PO (07:31)
[2025-02-20] MEDS ORDERED: HOME MED LIST COMPLETE! XX SCH (07:35)
[2025-02-20] MEDS: MORPHINE 4 MG/ML 1 ML VIAL IV ONE (07:37)
[2025-02-20 07:59] LABS: PLATELET COUNT, AUTOMATED 105 10^3/uL (150-450)
[2025-02-20 08:31] LABS: ALT/SGPT 35.0 U/L (7.0-40); AST/SGOT 51.0 U/L (<34); CALCIUM LEVEL 7.6 MG/DL (8.3-10.6); CARBON DIOXIDE LEVEL 17.0 MMOL/L (20-31); CHLORIDE LEVEL 103.0 MMOL/L (98-107); CREATININE FOR GFR 2.04 MG/DL (0.70-1.30); GLOMERULAR FILTRATION RATE 36.2 (>49); POTASSIUM SERUM 5.1 MMOL/L (3.5-5.1); SODIUM LEVEL 132.0 MMOL/L (136-145)
[2025-02-20] MEDS: PANTOPRAZOLE 40MG VIAL IV SCH (08:33)
[2025-02-20] MEDS: ERTAPENEM SODIUM 1 GM in NS MINI-BAG PLUS 50 ML IV SCH (08:34)
[2025-02-20] MEDS ORDERED: MIDAZOLAM INJ 2 MG/2 ML VIAL As Ordered ONE (09:57)
[2025-02-20] MEDS ORDERED: CALCIUM CHLORIDE 10% 1 GM/10 ML SYR As Ordered ONE (10:42)
[2025-02-20] MEDS ORDERED: ETOMIDATE 20 MG/10 ML VIAL As Ordered ONE (10:42)
[2025-02-20] MEDS ORDERED: ONDANSETRON 4MG/2ML VIAL As Ordered ONE (10:43)
[2025-02-20] MEDS ORDERED: dexAMETHasone 4 MG/ML 1 ML VIAL As Ordered ONE (10:43)
[2025-02-20] MEDS ORDERED: PHENYLephrine 500MCG 5ML (100MCG/ML) SYRINGE As Ordered ONE (10:54)
[2025-02-20] MEDS: ISOVUE-300 61% 100 ML VIAL As Ordered ONE (10:55)
[2025-02-20] MEDS: LINEZOLID 600 MG in IV 1 EA IV SCH (11:10)
[2025-02-20] MEDS: LR 1,000 ML IV SCH (11:25)
[2025-02-20] MEDS ORDERED: HYDROMORPHONE HCL 0.5 MG/0.5 ML SYRINGE IV PRN (11:25)
[2025-02-20] MEDS ORDERED: ONDANSETRON 4MG/2ML VIAL IV PRN (11:25)
[2025-02-20] MEDS: INSULIN LISPRO (NovoLOG) PER UNIT SC PRN (11:36)
[2025-02-20 12:58] VITALS: BP 117/58; TEMP 97.5; O2SAT 97
[2025-02-20] MEDS: INSULIN LISPRO (NovoLOG) PER UNIT SC SCH ×3 (13:07→21:35)
[2025-02-20 16:20] VITALS: BP 132/63; TEMP 97.4; O2SAT 96
[2025-02-20 20:08] VITALS: BP 124/60; TEMP 97.6; O2SAT 92
[2025-02-20] MEDS: LanTUS (INSULIN GLARGINE INJ) 1 UNITS/0.01 ML SC SCH (21:35)
[2025-02-21 00:09] VITALS: BP 150/73; TEMP 98.2; O2SAT 93
[2025-02-21 00:24] LABS: AMORPHOUS SEDIMENT SMALL (NEGATIVE); APPEARANCE, URINE CLOUDY (CLEAR); BACTERIA, URINE AUTO 1+ (NEGATIVE); BILIRUBIN, URINE AUTO NEGATIVE (NEGATIVE); BLOOD, URINE BLOOD 3+ (NEGATIVE); GLUCOSE, URINE (UA) AUTO 3+ mg/dL (NEGATIVE); KETONE, URINE AUTO NEGATIVE (NEGATIVE); LEUKOCYTE ESTERASE, URINE AUTO 2+ (NEGATIVE); NITRITE, URINE AUTO NEGATIVE (NEGATIVE); PROTEIN, URINE AUTO 2+ mg/dL (NEGATIVE); RBC, URINE AUTO TNTC /HPF (0-3); SPECIFIC GRAVITY URINE AUTO 1.018 (1.002-1.035); SQUAMOUS EPITHELIAL CELL UR AU 0 /HPF (0-6); UROBILINOGEN, URINE AUTO 0.2 mg/dL (0.0-2.0); WBC, URINE AUTO 151 /HPF (0-3)
[2025-02-21 03:22] VITALS: BP 149/75; TEMP 97.6; O2SAT 92
[2025-02-21 07:15] LABS: PLATELET COUNT, AUTOMATED 146 10^3/uL (150-450)
[2025-02-21 07:39] LABS: ALT/SGPT 35.0 U/L (7.0-40); AST/SGOT 36.0 U/L (<34); CALCIUM LEVEL 7.9 MG/DL (8.3-10.6); CARBON DIOXIDE LEVEL 16.0 MMOL/L (20-31); CHLORIDE LEVEL 107.0 MMOL/L (98-107); CREATININE FOR GFR 1.93 MG/DL (0.70-1.30); GLOMERULAR FILTRATION RATE 38.7 (>49); POTASSIUM SERUM 5.2 MMOL/L (3.5-5.1); SODIUM LEVEL 135.0 MMOL/L (136-145)
[2025-02-21 07:47] VITALS: BP 147/75; TEMP 97; O2SAT 93
[2025-02-21] MEDS: ATORVASTATIN 20 MG TAB PO SCH (08:51)
[2025-02-21] MEDS: APIXABAN 5 MG TAB PO SCH (08:52)
[2025-02-21] MEDS: MAGNESIUM OXIDE 400 MG TAB PO SCH (08:52)
[2025-02-21] MEDS: ESCITALOPRAM OXALATE 10 MG TABLET PO SCH (08:52)
[2025-02-21] MEDS: LanTUS (INSULIN GLARGINE INJ) 1 UNITS/0.01 ML SC SCH ×2 (08:56→21:44)
[2025-02-21 08:58] LABS: VENOUS BASE EXCESS -9.8 (-2.0-2.0); VENOUS HCO3 15.6 MMOL/L (23.0-27.0); VENOUS O2 SATURATION 99.6 % (60.0-80.0); VENOUS PARTIAL PRESSURE CO2 32.6 mmHg (38.0-50.0); VENOUS PARTIAL PRESSURE O2 208.9 mmHg (30.0-50.0); VENOUS PH 7.297 UNITS (7.330-7.430); VENOUS STANDARD HCO3 16.8 MMOL/L; VENOUS TOTAL CO2 16.6 MMOL/L (24.0-28.0)
[2025-02-21] MEDS ORDERED: LanTUS (INSULIN GLARGINE INJ) 1 UNITS/0.01 ML SC SCH (09:00)
[2025-02-21] MEDS: MORPHINE 4 MG/ML 1 ML VIAL IV PRN (11:39)
[2025-02-21 11:59] VITALS: BP 114/58; TEMP 97.2; O2SAT 93
[2025-02-21] MEDS: INSULIN LISPRO (NovoLOG) PER UNIT SC SCH ×2 (13:22→18:15)
[2025-02-21 15:39] VITALS: BP 98/50; TEMP 97; O2SAT 95
[2025-02-21] MEDS: LR 1,000 ML IV ONE (17:22)
[2025-02-21 17:29] LABS: ABG BASE EXCESS -9.8 (-2.0-2.0); ABG HCO3 15.6 MMOL/L (22.0-26.0); ABG O2 SATURATION 93.1 % (95.0-99.0); ABG PARTIAL PRESSURE CO2 32.9 mmHg (35.0-45.0); ABG PARTIAL PRESSURE O2 72.0 mmHg (75.0-100.0); ABG STANDARD HCO3 16.6 MMOL/L. (22.0-26.0); ABG TOTAL CO2 16.7 MMOL/L (23.0-31.0); ABG pH (ARTERIAL) 7.295 UNITS (7.350-7.450)
[2025-02-21 17:51] LABS: ESTIMATED AVERAGE GLUCOSE 263.0 MG/DL (60-110)
[2025-02-21 18:06] LABS: ALT/SGPT 38 U/L (7.0-40); AST/SGOT 46 U/L (<34); CALCIUM LEVEL 7.8 MG/DL (8.3-10.6); CARBON DIOXIDE LEVEL 16 MMOL/L (20-31); CHLORIDE LEVEL 107 MMOL/L (98-107); CK-MB VALUE MASS < 1.0 NG/ML (<3.6); CPK CREATINE PHOSPHOKINASE 41 U/L (46-171); CREATININE FOR GFR 1.94 MG/DL (0.70-1.30); GLOMERULAR FILTRATION RATE 38.4 (>49); POTASSIUM SERUM 4.9 MMOL/L (3.5-5.1); SODIUM LEVEL 137 MMOL/L (136-145)
[2025-02-21] MEDS: SODIUM BICARBONATE 150 MEQ in D5W 1,000 ML IV SCH (18:31)
[2025-02-21 19:28] VITALS: BP 96/56; TEMP 97.2; O2SAT 93
[2025-02-21] MEDS: SODIUM BICARBONATE 150 MEQ in STERILE WATER LITER BAG 1,000 ML IV SCH (23:49)
[2025-02-22 00:16] VITALS: BP 101/52; TEMP 97.3; O2SAT 92
[2025-02-22 03:48] VITALS: BP 98/59; TEMP 97.6; O2SAT 92
[2025-02-22 06:18] LABS: PLATELET COUNT, AUTOMATED 140 10^3/uL (150-450)
[2025-02-22 06:35] LABS: ALT/SGPT 51.0 U/L (7.0-40); AST/SGOT 57.0 U/L (<34); CALCIUM LEVEL 7.5 MG/DL (8.3-10.6); CARBON DIOXIDE LEVEL 19.0 MMOL/L (20-31); CHLORIDE LEVEL 106.0 MMOL/L (98-107); CREATININE FOR GFR 1.86 MG/DL (0.70-1.30); GLOMERULAR FILTRATION RATE 40.4 (>49); POTASSIUM SERUM 5.0 MMOL/L (3.5-5.1); SODIUM LEVEL 136.0 MMOL/L (136-145)
[2025-02-22 07:15] VITALS: BP 103/55; TEMP 97.2; O2SAT 92
[2025-02-22] MEDS: INSULIN LISPRO (NovoLOG) PER UNIT SC SCH (10:22)
[2025-02-22 12:16] VITALS: BP 113/55; TEMP 97.4; O2SAT 95
[2025-02-22 15:42] VITALS: BP 92/50; TEMP 97.4; O2SAT 90
[2025-02-22 20:00] VITALS: BP 108/62; TEMP 97.2; O2SAT 88
[2025-02-22] MEDS: MORPHINE 4 MG/ML 1 ML VIAL IV PRN (23:44)
[2025-02-23] VITALS (9 sets, daily range): BP systolic 108–144; BP diastolic 57–70; TEMP 97.2–98.6; O2SAT 85–94
[2025-02-23] MEDS ORDERED: NICOTINE 21 MG/24 HR 1 EA TRANSDERMAL TD PRN (00:50)
[2025-02-23 04:57] LABS: PLATELET COUNT, AUTOMATED 139 10^3/uL (150-450)
[2025-02-23 05:34] LABS: ALT/SGPT 50.0 U/L (7.0-40); AST/SGOT 47.0 U/L (<34); CALCIUM LEVEL 7.7 MG/DL (8.3-10.6); CARBON DIOXIDE LEVEL 26.0 MMOL/L (20-31); CHLORIDE LEVEL 101.0 MMOL/L (98-107); CREATININE FOR GFR 1.83 MG/DL (0.70-1.30); GLOMERULAR FILTRATION RATE 41.2 (>49); POTASSIUM SERUM 4.1 MMOL/L (3.5-5.1); SODIUM LEVEL 138.0 MMOL/L (136-145)
[2025-02-23] MEDS: NICOTINE 21 MG/24 HR 1 EA TRANSDERMAL TD ONE (13:22)
[2025-02-23] MEDS: NYSTATIN 100,000 UNITS/GM TOPICAL PWD 15 GM TOP SCH (22:04)
[2025-02-23] MEDS: LINEZOLID 600 MG TABLET PO SCH (22:04)
[2025-02-24] VITALS (7 sets, daily range): BP systolic 120–154; BP diastolic 56–75; TEMP 97–97.5; O2SAT 91–98
[2025-02-24 05:35] LABS: ALT/SGPT 35.0 U/L (7.0-40); AST/SGOT 24.0 U/L (<34); CALCIUM LEVEL 7.9 MG/DL (8.3-10.6); CARBON DIOXIDE LEVEL 25.0 MMOL/L (20-31); CHLORIDE LEVEL 105.0 MMOL/L (98-107); CREATININE FOR GFR 1.5 MG/DL (0.70-1.30); GLOMERULAR FILTRATION RATE 52.3 (>49); POTASSIUM SERUM 4.4 MMOL/L (3.5-5.1); SODIUM LEVEL 140.0 MMOL/L (136-145)
[2025-02-24] MEDS ORDERED: NICOTINE 21 MG/24 HR 1 EA TRANSDERMAL TD SCH (09:00)
[2025-02-24] MEDS: NICOTINE 21 MG/24 HR 1 EA TRANSDERMAL TD SCH (09:39)
[2025-02-24] MEDS: TORSEMIDE 10 MG TABLET PO ONE (12:28)
[2025-02-25 06:36] VITALS: BP 160/66; TEMP 97.5; O2SAT 92
[2025-02-25 06:54] LABS: ALT/SGPT 29.0 U/L (7.0-40); AST/SGOT 18.0 U/L (<34); CALCIUM LEVEL 8.2 MG/DL (8.3-10.6); CARBON DIOXIDE LEVEL 26.0 MMOL/L (20-31); CHLORIDE LEVEL 105.0 MMOL/L (98-107); CREATININE FOR GFR 1.3 MG/DL (0.70-1.30); GLOMERULAR FILTRATION RATE 62.1 (>49); POTASSIUM SERUM 4.7 MMOL/L (3.5-5.1); SODIUM LEVEL 140.0 MMOL/L (136-145)
[2025-02-25] MEDS ORDERED: TORSEMIDE 10 MG TABLET PO SCH (09:00)
[2025-02-25] MEDS: TORSEMIDE 20 MG TAB PO SCH (09:52)
[2025-02-25 11:54] VITALS: BP 146/75; TEMP 97.5; O2SAT 92
[2025-02-25 21:13] VITALS: BP 138/59; TEMP 97.5; O2SAT 96
[2025-02-26 06:34] VITALS: BP 153/71; TEMP 97.3; O2SAT 94
[2025-02-26 11:26] VITALS: BP 158/71; TEMP 97.3; O2SAT 93
[2025-02-26] MEDS: INSULIN LISPRO (NovoLOG) PER UNIT SC SCH (18:47)
[2025-02-26 21:41] VITALS: BP 152/73; TEMP 97.5; O2SAT 95
[2025-02-27] VITALS (8 sets, daily range): BP systolic 130–168; BP diastolic 50–96; TEMP 95.3–100.3; O2SAT 93–97
[2025-02-27 11:22] LABS: CALCIUM LEVEL 8.5 MG/DL (8.3-10.6); CARBON DIOXIDE LEVEL 30.0 MMOL/L (20-31); CHLORIDE LEVEL 104.0 MMOL/L (98-107); CREATININE FOR GFR 1.31 MG/DL (0.70-1.30); GLOMERULAR FILTRATION RATE 61.5 (>49); MAGNESIUM LEVEL 1.6 MG/DL (1.8-2.4); POTASSIUM SERUM 4.7 MMOL/L (3.5-5.1); SODIUM LEVEL 144.0 MMOL/L (136-145)
[2025-02-27] MEDS: amLODIPine 5 MG TAB PO ONE (12:00)
[2025-02-27] MEDS: INSULIN LISPRO (NovoLOG) PER UNIT SC SCH (13:03)
[2025-02-27] MEDS: MAGNESIUM OXIDE 400 MG TAB PO SCH (16:55)
[2025-02-27] MEDS: ACETAMINOPHEN *IV* 1,000 MG in IV 1 EA IV ONE (18:59)
[2025-02-28 04:09] VITALS: BP 142/58; TEMP 98.4; TEMP 99.6; O2SAT 95
[2025-02-28 06:46] LABS: CALCIUM LEVEL 8.0 MG/DL (8.3-10.6); CARBON DIOXIDE LEVEL 30.0 MMOL/L (20-31); CHLORIDE LEVEL 104.0 MMOL/L (98-107); CREATININE FOR GFR 1.3 MG/DL (0.70-1.30); GLOMERULAR FILTRATION RATE 62.1 (>49); MAGNESIUM LEVEL 1.6 MG/DL (1.8-2.4); POTASSIUM SERUM 4.3 MMOL/L (3.5-5.1); SODIUM LEVEL 142.0 MMOL/L (136-145)
[2025-02-28] MEDS: MAG SULF 1GM/100ML (MAG RUN) 1 GM in IV 1 EA IV SCH (08:32)
[2025-02-28] MEDS: amLODIPine 5 MG TAB PO SCH (08:36)
[2025-02-28 12:00] VITALS: BP 148/71; TEMP 97.3; O2SAT 97
[2025-02-28 16:25] LABS: C REACTIVE PROTEIN QUANTITATIV 1.71 MG/DL (<1.0)
[2025-02-28 17:27] LABS: KETONE, URINE AUTO RFX NEGATIVE (NEGATIVE); LEUKOCYTE ESTERASE UR AUTO RFX 3+ (NEGATIVE); NITRITE, URINE AUTO RFX NEGATIVE (NEGATIVE); RBC, URINE AUTO RFX TNTC /HPF (0-3); SQUAM EPITHELIAL CELL UR AURFX 0 /HPF (0-6); WBC, URINE AUTO RFX 101 /HPF (0-3)
[2025-02-28] MEDS: FOSFOMYCIN TROMETHAMINE 3 GM POWDER PACKET PO ONE (17:37)
[2025-02-28 20:25] VITALS: BP 137/60; TEMP 97.3; O2SAT 96
[2025-03-01 01:05] VITALS: TEMP 96.4
[2025-03-01 03:08] VITALS: BP 147/74; TEMP 97.2; O2SAT 93
[2025-03-01 06:30] LABS: BASO # 0.0 10^3/uL (0.0-0.2); BASO % 0.2 % (0.0-1.0); EOS # 0.1 10^3/uL (0.0-0.5); EOS % 2.7 % (0.0-3.0); LYMPH # 0.8 10^3/uL (1.5-5.0); LYMPH % 16.0 % (24.0-44.0); MONO # 0.5 10^3/uL (0.0-0.8); MONO % 9.0 % (2.0-8.0); NEUTROPHILS # 3.6 10^3/uL (1.5-8.5); NEUTROPHILS % 71.3 % (36.0-66.0); PLATELET COUNT, AUTOMATED 179 10^3/uL (150-450)
[2025-03-01 07:02] LABS: CALCIUM LEVEL 9.0 MG/DL (8.3-10.6); CARBON DIOXIDE LEVEL 29.0 MMOL/L (20-31); CHLORIDE LEVEL 104.0 MMOL/L (98-107); CREATININE FOR GFR 1.25 MG/DL (0.70-1.30); GLOMERULAR FILTRATION RATE 65.1 (>49); MAGNESIUM LEVEL 1.8 MG/DL (1.8-2.4); POTASSIUM SERUM 4.2 MMOL/L (3.5-5.1); SODIUM LEVEL 142.0 MMOL/L (136-145)
[2025-03-01 11:48] VITALS: BP 137/74; TEMP 97.5; O2SAT 93
[2025-03-01 20:01] VITALS: BP 156/68; TEMP 97.9; O2SAT 94
[2025-03-02 05:07] VITALS: BP 149/71; TEMP 97.2; O2SAT 95
[2025-03-02 06:43] LABS: CALCIUM LEVEL 8.3 MG/DL (8.3-10.6); CARBON DIOXIDE LEVEL 30.0 MMOL/L (20-31); CHLORIDE LEVEL 104.0 MMOL/L (98-107); CREATININE FOR GFR 1.15 MG/DL (0.70-1.30); GLOMERULAR FILTRATION RATE 72.0 (>49); MAGNESIUM LEVEL 1.8 MG/DL (1.8-2.4); POTASSIUM SERUM 4.1 MMOL/L (3.5-5.1); SODIUM LEVEL 143.0 MMOL/L (136-145)
[2025-03-02] MEDS ORDERED: PILL CUTTER 1 EACH XX PRN (11:30)
[2025-03-02] MEDS: ONDANSETRON 4MG/2ML VIAL IV PRN (11:41)
[2025-03-02 12:00] VITALS: BP 133/62; TEMP 97.5; O2SAT 91
[2025-03-02 20:42] VITALS: BP 127/60; TEMP 97.7; O2SAT 94
[2025-03-03 05:03] VITALS: BP 126/58; TEMP 98.1; O2SAT 92
[2025-03-03 07:20] LABS: CALCIUM LEVEL 8.3 MG/DL (8.3-10.6); CARBON DIOXIDE LEVEL 29.0 MMOL/L (20-31); CHLORIDE LEVEL 102.0 MMOL/L (98-107); CREATININE FOR GFR 1.38 MG/DL (0.70-1.30); GLOMERULAR FILTRATION RATE 57.8 (>49); MAGNESIUM LEVEL 1.8 MG/DL (1.8-2.4); POTASSIUM SERUM 4.4 MMOL/L (3.5-5.1); SODIUM LEVEL 139.0 MMOL/L (136-145)
[2025-03-03] MEDS: ENTRESTO 49-51 MG TABLET (SACUBITRIL/VALSARTAN) PO SCH (09:00)
[2025-03-03] MEDS: TORSEMIDE 10 MG TABLET PO SCH (09:50)
[2025-03-03] MEDS: PANTOPRAZOLE 40MG TAB PO SCH (09:52)
[2025-03-03 12:00] VITALS: BP 106/58; TEMP 97.5; O2SAT 96
[2025-03-03 20:20] VITALS: BP 107/56; TEMP 97.7; O2SAT 92
[2025-03-04 03:23] VITALS: BP 151/69; TEMP 97.5
[2025-03-04 06:51] LABS: CALCIUM LEVEL 8.6 MG/DL (8.3-10.6); CARBON DIOXIDE LEVEL 27.0 MMOL/L (20-31); CHLORIDE LEVEL 103.0 MMOL/L (98-107); CREATININE FOR GFR 1.23 MG/DL (0.70-1.30); GLOMERULAR FILTRATION RATE 66.4 (>49); MAGNESIUM LEVEL 1.8 MG/DL (1.8-2.4); POTASSIUM SERUM 4.5 MMOL/L (3.5-5.1); SODIUM LEVEL 141.0 MMOL/L (136-145)
[2025-03-04 11:45] VITALS: BP 136/64; TEMP 97.5; O2SAT 94
[2025-03-04 20:05] VITALS: BP 137/64; TEMP 97.5; O2SAT 94
[2025-03-05 05:24] VITALS: BP 153/86; TEMP 97.7; O2SAT 94
[2025-03-05 06:59] LABS: CALCIUM LEVEL 8.7 MG/DL (8.3-10.6); CARBON DIOXIDE LEVEL 27.0 MMOL/L (20-31); CHLORIDE LEVEL 104.0 MMOL/L (98-107); CREATININE FOR GFR 1.04 MG/DL (0.70-1.30); GLOMERULAR FILTRATION RATE 81.2 (>49); MAGNESIUM LEVEL 1.9 MG/DL (1.8-2.4); POTASSIUM SERUM 4.9 MMOL/L (3.5-5.1); SODIUM LEVEL 141.0 MMOL/L (136-145)
[2025-03-05 12:00] VITALS: BP 161/79; TEMP 97.5; O2SAT 98
[2025-03-05 21:08] VITALS: BP 162/78; TEMP 97.9; O2SAT 94
[2025-03-06 03:58] VITALS: BP 161/77; TEMP 97.9; O2SAT 95
[2025-03-06 07:32] LABS: CALCIUM LEVEL 8.4 MG/DL (8.3-10.6); CARBON DIOXIDE LEVEL 27.0 MMOL/L (20-31); CHLORIDE LEVEL 104.0 MMOL/L (98-107); CREATININE FOR GFR 1.0 MG/DL (0.70-1.30); GLOMERULAR FILTRATION RATE 85.1 (>49); MAGNESIUM LEVEL 1.9 MG/DL (1.8-2.4); POTASSIUM SERUM 4.4 MMOL/L (3.5-5.1); SODIUM LEVEL 140.0 MMOL/L (136-145)
[2025-03-06 12:00] VITALS: BP 129/99; TEMP 97.8; O2SAT 99
[2025-03-06 23:21] VITALS: BP 135/83; TEMP 97.7; O2SAT 98
[2025-03-07] VITALS (8 sets, daily range): BP systolic 126–138; BP diastolic 63–88; TEMP 97.7–97.9; O2SAT 84–99
[2025-03-07] MEDS ORDERED: ERTAPENEM SODIUM 1 GM in NS MINI-BAG PLUS 50 ML IV ONE (11:00)
[2025-03-07] MEDS ORDERED: KETOROLAC 30 MG/ML 1 ML VIAL As Ordered ONE (11:30)
[2025-03-07] MEDS ORDERED: LIDOCAINE 2% 100 MG/5 ML SDV (FOR ANES.) As Ordered ONE (11:31)
[2025-03-07] MEDS: ERTAPENEM SODIUM 1 GM in NS MINI-BAG PLUS 50 ML IV ONE (15:40)
[2025-03-07] MEDS ORDERED: ACETAMINOPHEN 1000MG/100ML IV BAG As Ordered ONE (16:02)
[2025-03-07] MEDS ORDERED: GLUCAGON INJ 1 MG VIAL SC PRN (16:30)
[2025-03-07] MEDS ORDERED: INSULIN LISPRO (NovoLOG) PER UNIT SC PRN (16:30)
[2025-03-07] MEDS ORDERED: GLUCOSE 4 GM CHEW PO PRN (16:30)
[2025-03-07] MEDS ORDERED: HYDROMORPHONE HCL 0.5 MG/0.5 ML SYRINGE IV PRN (16:30)
[2025-03-07] MEDS ORDERED: DEXTROSE 50% 50 ML SYRINGE IV PRN (16:30)
[2025-03-07] MEDS ORDERED: MORPHINE 4 MG/ML 1 ML VIAL IV PRN (16:30)
[2025-03-08 01:15] VITALS: BP 132/77; TEMP 97.9; O2SAT 90
[2025-03-08 05:34] VITALS: BP 133/77; TEMP 97.9; O2SAT 91
[2025-03-08 08:00] VITALS: BP 132/70; TEMP 98.2; O2SAT 95
[2025-03-08 12:00] VITALS: BP 130/67; TEMP 97.5; O2SAT 94
[2025-03-08 20:06] VITALS: BP 142/67; TEMP 98.3; O2SAT 95
[2025-03-09 04:00] VITALS: BP 144/65; TEMP 97.9; O2SAT 93
[2025-03-09 08:52] LABS: BASO # 0.0 10^3/uL (0.0-0.2); BASO % 0.4 % (0.0-1.0); EOS # 0.1 10^3/uL (0.0-0.5); EOS % 1.1 % (0.0-3.0); LYMPH # 1.0 10^3/uL (1.5-5.0); LYMPH % 17.4 % (24.0-44.0); MONO # 0.6 10^3/uL (0.0-0.8); MONO % 9.8 % (2.0-8.0); NEUTROPHILS # 4.0 10^3/uL (1.5-8.5); NEUTROPHILS % 70.9 % (36.0-66.0); PLATELET COUNT, AUTOMATED 157 10^3/uL (150-450)
[2025-03-09 09:16] LABS: CALCIUM LEVEL 8.4 MG/DL (8.3-10.6); CARBON DIOXIDE LEVEL 26.0 MMOL/L (20-31); CHLORIDE LEVEL 103.0 MMOL/L (98-107); CREATININE FOR GFR 1.24 MG/DL (0.70-1.30); GLOMERULAR FILTRATION RATE 65.7 (>49); POTASSIUM SERUM 5.4 MMOL/L (3.5-5.1); SODIUM LEVEL 137.0 MMOL/L (136-145)
[2025-03-09 11:47] VITALS: BP 152/72; TEMP 98.5; O2SAT 96
[2025-03-09] MEDS: FUROSEMIDE 40 MG/4 ML VIAL IV ONE (12:54)
[2025-03-09] MEDS: PATIROMER SORBITEX CALCIUM 8.4GM POWDER PACKET PO ONE (12:55)
[2025-03-09] MEDS: CALCIUM GLUCONATE 1,000 MG in DEXTROSE 5% (D5W) MINI-BAG PLU 100 ML IV ONE (12:55)
[2025-03-09 13:29] LABS: CALCIUM LEVEL 8.5 MG/DL (8.3-10.6); CARBON DIOXIDE LEVEL 28.0 MMOL/L (20-31); CHLORIDE LEVEL 101.0 MMOL/L (98-107); CREATININE FOR GFR 1.21 MG/DL (0.70-1.30); GLOMERULAR FILTRATION RATE 67.7 (>49); POTASSIUM SERUM 5.0 MMOL/L (3.5-5.1); SODIUM LEVEL 136.0 MMOL/L (136-145)
[2025-03-09] MEDS: ALBUTEROL SULFATE 2.5 MG/0.5 ML INH CONCENTRATE NEB SOLN NEB ONE (13:43)
[2025-03-09] MEDS: ACETAMINOPHEN 500 MG TAB PO PRN (18:42)
[2025-03-09 20:23] VITALS: BP 129/66; TEMP 98.6; O2SAT 94
[2025-03-10 06:10] VITALS: BP 145/67; TEMP 98.6; O2SAT 97
[2025-03-10 12:02] VITALS: BP 129/62; TEMP 98.6; O2SAT 98
[2025-03-10 20:59] VITALS: BP 131/60; TEMP 98.8; O2SAT 95
[2025-03-11 03:55] VITALS: BP 149/67; TEMP 98.6; O2SAT 95
[2025-03-11] MEDS ORDERED: AMLO1TAB24 PO (08:53)
[2025-03-11] MEDS ORDERED: NICO21PAT TD (08:53)
[2025-03-11 09:12] VITALS: BP 151/71
== END 2025-03-11 11:41 | DRG 659 ==
LOC: M ED 00:17 → M ED INP 07:17 → M PCU 12:29 → M MSPAV 02-24 22:09
PROVIDERS: ADMIT Internal Medicine; ATTEND Internal Medicine
PROC: 0TP98DZ Removal of Intraluminal Device from Ureter, Via Natural or Artificial Opening Endoscopic (ICD-10-PCS; 2025-02-20)
PROC: 0TP98DZ Removal of Intraluminal Device from Ureter, Via Natural or Artificial Opening Endoscopic (ICD-10-PCS; 2025-02-20)
PROC: 0T778DZ Dilation of Left Ureter with Intraluminal Device, Via Natural or Artificial Opening Endoscopic (ICD-10-PCS; principal; 2025-02-20 09:55)
PROC: 0T778DZ Dilation of Left Ureter with Intraluminal Device, Via Natural or Artificial Opening Endoscopic (ICD-10-PCS; 2025-03-07)
DX: T83.122A Displacement of indwelling ureteral stent, initial encounter (principal); R65.20 Severe sepsis without septic shock; A41.81 Sepsis due to Enterococcus; N13.30 Unspecified hydronephrosis; E87.1 Hypo-osmolality and hyponatremia; N17.9 Acute kidney failure, unspecified; I48.92 Unspecified atrial flutter; N10 Acute pyelonephritis; I24.89 Other forms of acute ischemic heart disease; E87.20 Acidosis, unspecified; E11.22 Type 2 diabetes mellitus with diabetic chronic kidney disease; N18.30 Chronic kidney disease, stage 3 unspecified; D64.9 Anemia, unspecified; E87.5 Hyperkalemia; B96.20 Unspecified Escherichia coli [E. coli] as the cause of diseases classified elsewhere; K21.9 Gastro-esophageal reflux disease without esophagitis; I48.91 Unspecified atrial fibrillation; I50.9 Heart failure, unspecified; I25.10 Atherosclerotic heart disease of native coronary artery without angina pectoris; I25.2 Old myocardial infarction; Z87.891 Personal history of nicotine dependence; Z88.0 Allergy status to penicillin; Z88.8 Allergy status to other drugs, medicaments and biological substances; Z79.899 Other long term (current) drug therapy; Z95.0 Presence of cardiac pacemaker; K76.0 Fatty (change of) liver, not elsewhere classified; R16.1 Splenomegaly, not elsewhere classified; Y84.6 Urinary catheterization as the cause of abnormal reaction of the patient, or of later complication, without mention of misadventure at the time of the procedure

== ENCOUNTER → 2025-03-28 | Outpatient (REF) | payer MEDICARE, MEDICAID ==
[~2025-03-28] MED LIST changes: -BACTDSTA PO; +CALC500T61 PO; +GUAIDM5UD PO; +MAG-LIQ2 PO; +NICO21PAT TD; +SULF-8 PO
[2025-03-28 10:40] LABS: CALCIUM LEVEL 8.3 MG/DL (8.3-10.6); CARBON DIOXIDE LEVEL 23.0 MMOL/L (20-31); CHLORIDE LEVEL 106.0 MMOL/L (98-107); CREATININE FOR GFR 0.95 MG/DL (0.70-1.30); GLOMERULAR FILTRATION RATE 89.9 (>49); MAGNESIUM LEVEL 1.9 MG/DL (1.8-2.4); POTASSIUM SERUM 4.7 MMOL/L (3.5-5.1); SODIUM LEVEL 140.0 MMOL/L (136-145)
== END ==
PROVIDERS: ATTEND Nurse Practitioner Family
DX: I50.22 Chronic systolic (congestive) heart failure (principal)

== ENCOUNTER → 2025-04-04 | Outpatient (REF) | payer MEDICARE, MEDICAID ==
[2025-04-04 12:46] LABS: BASO # 0.0 10^3/uL (0.0-0.2); BASO % 0.5 % (0.0-1.0); EOS # 0.1 10^3/uL (0.0-0.5); EOS % 2.1 % (0.0-3.0); LYMPH # 1.3 10^3/uL (1.5-5.0); LYMPH % 19.2 % (24.0-44.0); MONO # 0.7 10^3/uL (0.0-0.8); MONO % 10.7 % (2.0-8.0); NEUTROPHILS # 4.5 10^3/uL (1.5-8.5); NEUTROPHILS % 67.0 % (36.0-66.0); PLATELET COUNT, AUTOMATED 205 10^3/uL (150-450)
[2025-04-04 13:26] LABS: CALCIUM LEVEL 9.0 MG/DL (8.3-10.6); CARBON DIOXIDE LEVEL 26.0 MMOL/L (20-31); CHLORIDE LEVEL 104.0 MMOL/L (98-107); CREATININE FOR GFR 1.04 MG/DL (0.70-1.30); GLOMERULAR FILTRATION RATE 80.7 (>49); MAGNESIUM LEVEL 1.9 MG/DL (1.8-2.4); POTASSIUM SERUM 4.5 MMOL/L (3.5-5.1); SODIUM LEVEL 140.0 MMOL/L (136-145)
== END ==
PROVIDERS: ATTEND Family Medicine Addiction Medicine
DX: D64.9 Anemia, unspecified (principal)

== ENCOUNTER → 2025-04-08 | Outpatient (CLI) | payer MEDICARE, MEDICAID | LOC: M PLAIMG 10:50 | PROVIDERS: ATTEND Family Medicine Addiction Medicine | DX: R05.1 Acute cough (principal) ==